=== PATIENT | female | born 1985 | race Caucasian/White ===

== ENCOUNTER 2016-12-05 15:44 | Day surgery (SDC) | payer OTHER ==
[~2016-12-05] VITALS: Ht 167.6 cm; Wt 81.8 kg
[~2016-12-05 15:44] MED LIST: ENDOCET 5-3251 EACH PO; FLOMAX0.4 MG PO; IBUPROFEN800 MG PO; MULTI-VITAMIN1 EAC3 PO; Motrin PO; PERCOCET 5/31 TABLET PO; PRENATAL TABLE1 EAC3 PO; TRI-ESTARYLLA1 EACH PO; ZOFRAN ODT4 MG PO
[2016-12-05 17:04] LABS: HEMATOCRIT 36.9 % (36.0-46.0); MCH 29.5 PG (29.0-34.0); MCHC 33.6 G/DL (30.0-36.0); MCV 87.9 FL (83-99); MEAN PLAT.VOLUME 11.2 uM^3 (9.5-12.4); PLATELET COUNT 275 K/uL (156-360); RBC DIS.WIDTH-CV 12.7 % (11.8-14.6); RBC DIS.WIDTH-SD 40.4 % (39-53); WHITE BLOOD COUNT 10.1 K/uL (4.1-10.2)
[2016-12-05 17:16] LABS: CHLORIDE 106 mEq/L (99-109); POTASSIUM 3.5 mEq/L (3.7-5.4); SODIUM 139 mEq/L (136-147)
[2016-12-05 17:19] LABS: GLUCOSE 112 mg/dL (70-99)
[2016-12-05 17:20] LABS: ANION GAP 12 MEQ/L (2-14)
[2016-12-05 17:21] LABS: TOTAL BILIRUBIN 0.9 mg/dL (0.0-1.0)
[2016-12-05 17:22] LABS: ALKALINE PHOSPHATASE 71 IU/L (3-129); GFR ESTIMATE (CALCULATED) > 59 mL/min/
[2016-12-05 17:23] LABS: UREA NITROGEN (BUN) 8 mg/dL (9-23)
[2016-12-05 17:26] LABS: LIPASE 7 U/L (1.0-51.0)
[2016-12-05 18:42] LABS: ADD MIUA? YES; BILIRUBIN NEGATIVE; BLOOD LARGE; COLOR YELLOW ((YELLOW)); GLUCOSE (STRIP) NEGATIVE; KETONES 80; LEUKOCYTES NEGATIVE; NITRITE NEGATIVE; PROTEIN (STRIP) 100; SPECIFIC GRAVITY 1.028 (1.000-1.030); UROBILINOGEN 0.2 MG/DL (0.2-1.0)
[2016-12-05 19:01] LABS: BACTERIA RARE /HPF; EPITHELIAL CELLS RARE /HPF; MUCUS 3+ /LPF; RED BLOOD CELLS 15-20 /HPF (0-5); UCUL ADDED? NO; UNCLASSIFIED CRYSTALS 1+ /HPF; WHITE BLOOD CELLS 0-5 /HPF (0-5)
[2016-12-05] MEDS ORDERED: ALEVE220 MG PO (20:57)
[2016-12-06 02:50] VITALS: BP 113/56
== END 2016-12-06 08:56 | disposition home or self-care (01) ==
LOC: EXP 15:44 → EME 15:44 → SDC 12-06 00:43 → EXP 12-06 00:43 → 2EAST 12-06 02:06
PROVIDERS: Nurse Practitioner Family
DX: O00.10 Tubal pregnancy without intrauterine pregnancy (principal); Z30.2 Encounter for sterilization; K66.1 Hemoperitoneum; E66.9 Obesity, unspecified
CPT/HCPCS: 74177; 76801; 80053; 81003; 83690; 84702; 85027; 86900; 86901; 88302; 88305; 99281; 99285; G0378; J0330; J1100; J1885; J2175; J2250; J2405; J2710; J3010; J7030; S0020

== ENCOUNTER 2017-12-06 11:25 | Emergency (ER) | payer OTHER ==
[~2017-12-06] VITALS: Ht 167.6 cm; Wt 78.5 kg
[~2017-12-06 11:25] MED LIST changes: +ALEVE220 MG PO
[2017-12-06 13:02] LABS: HEMATOCRIT 40.7 % (36.0-46.0); MCH 30.7 PG (29.0-34.0); MCHC 34.4 G/DL (30.0-36.0); MCV 89.3 FL (83-99); PLATELET COUNT 231 K/uL (156-360); RBC DIS.WIDTH-CV 12.1 % (11.8-14.6); RBC DIS.WIDTH-SD 39.8 % (39-53); RED BLOOD COUNT 4.56 M/uL (3.80-5.20); WHITE BLOOD COUNT 6.6 K/uL (4.1-10.2)
[2017-12-06 13:12] LABS: ALBUMIN 4.8 g/dL (3.2-4.8); CHLORIDE 106 mEq/L (99-109); POTASSIUM 3.4 mEq/L (3.7-5.4); SODIUM 143 mEq/L (136-147)
[2017-12-06 13:14] LABS: GLUCOSE 76 mg/dL (70-99); TOTAL PROTEIN 7.8 g/dL (6.4-8.3)
[2017-12-06 13:16] LABS: TOTAL BILIRUBIN 0.4 mg/dL (0.0-1.0)
[2017-12-06 13:18] LABS: ALKALINE PHOSPHATASE 89 IU/L (3-129); CREATININE 0.7 mg/dL (0.6-1.3); GFR ESTIMATE (CALCULATED) > 59 mL/min/
[2017-12-06 13:18] LABS: APPEARANCE CLEAR ((CLEAR)); BILIRUBIN NEGATIVE; BLOOD SMALL; COLOR YELLOW ((YELLOW)); GLUCOSE (STRIP) NEGATIVE; KETONES NEGATIVE; LEUKOCYTES NEGATIVE; NITRITE NEGATIVE; PROTEIN (STRIP) NEGATIVE; SPECIFIC GRAVITY 1.012 (1.000-1.030); UROBILINOGEN 0.2 MG/DL (0.2-1.0)
[2017-12-06 13:19] LABS: UREA NITROGEN (BUN) 7 mg/dL (9-23)
[2017-12-06 13:20] LABS: AST (GOT) 14 IU/L (2-34)
[2017-12-06 13:21] LABS: ALT (GPT) 12 IU/L (3-49)
[2017-12-06 13:22] LABS: BACTERIA RARE /HPF; EPITHELIAL CELLS RARE /HPF; HYALINE CASTS 0-5 /LPF; MUCUS 2+ /LPF; RED BLOOD CELLS 30-40 /HPF (0-5); UCUL ADDED? NO; WHITE BLOOD CELLS 0-5 /HPF (0-5)
[2017-12-06 13:29] LABS: QUANTITATIVE HCG < 4.0 MIU/ML
[2017-12-06] MEDS ORDERED: TYLENOL WITH C1 EACH PO (16:46)
[2017-12-06 18:08] VITALS: BP 124/80
== END 2017-12-06 18:09 | disposition home or self-care (01) ==
LOC: EME 11:25
DX: N20.0 Calculus of kidney (principal); F32.9 Major depressive disorder, single episode, unspecified; Z90.722 Acquired absence of ovaries, bilateral; Z91.018 Allergy to other foods; Z91.030 Bee allergy status
CPT/HCPCS: 74176; 80053; 81003; 84702; 85027; 99281; 99285

== ENCOUNTER 2017-12-19 21:01 | Emergency (ER) | payer OTHER ==
[~2017-12-19] VITALS: Ht 167.6 cm; Wt 78.1 kg
[~2017-12-19 21:01] MED LIST changes: +TYLENOL WITH C1 EACH PO
[2017-12-19 21:41] LABS: HEMATOCRIT 35.6 % (36.0-46.0); HEMOGLOBIN 12.4 G/DL (11.9-15.5); MCH 30.9 PG (29.0-34.0); MCHC 34.8 G/DL (30.0-36.0); MCV 88.8 FL (83-99); PLATELET COUNT 226 K/uL (156-360); RBC DIS.WIDTH-SD 39.1 % (39-53); RED BLOOD COUNT 4.01 M/uL (3.80-5.20); WHITE BLOOD COUNT 5.4 K/uL (4.1-10.2)
[2017-12-19 21:41] LABS: APPEARANCE CLEAR ((CLEAR)); BILIRUBIN NEGATIVE; BLOOD SMALL; COLOR YELLOW ((YELLOW)); GLUCOSE (STRIP) NEGATIVE; KETONES NEGATIVE; LEUKOCYTES TRACE; NITRITE NEGATIVE; PROTEIN (STRIP) 30; SPECIFIC GRAVITY 1.023 (1.000-1.030); UROBILINOGEN 0.2 MG/DL (0.2-1.0)
[2017-12-19 21:49] LABS: ALBUMIN 4.4 g/dL (3.2-4.8); CHLORIDE 106 mEq/L (99-109); POTASSIUM 3.2 mEq/L (3.7-5.4)
[2017-12-19 21:50] LABS: SODIUM 143 mEq/L (136-147)
[2017-12-19 21:51] LABS: BACTERIA RARE /HPF; EPITHELIAL CELLS 1+ /HPF; MUCUS TRACE /LPF; RED BLOOD CELLS 30-40 /HPF (0-5); UCUL ADDED? YES
[2017-12-19 21:52] LABS: GLUCOSE 80 mg/dL (70-99); TOTAL PROTEIN 7.3 g/dL (6.4-8.3)
[2017-12-19 21:54] LABS: TOTAL BILIRUBIN 0.4 mg/dL (0.0-1.0)
[2017-12-19 21:55] LABS: ALKALINE PHOSPHATASE 79 IU/L (3-129); CREATININE 0.7 mg/dL (0.6-1.3); GFR ESTIMATE (CALCULATED) > 59 mL/min/
[2017-12-19 21:57] LABS: AST (GOT) 16 IU/L (2-34); UREA NITROGEN (BUN) 11 mg/dL (9-23)
[2017-12-19 21:58] LABS: ALT (GPT) 13 IU/L (3-49)
[2017-12-19 22:06] LABS: QUANTITATIVE HCG < 4.0 MIU/ML
[2017-12-20] MEDS ORDERED: PERCOCET 5/31 TABLET PO (00:15)
[2017-12-20] MEDS ORDERED: ZOFRAN4 MG PO (00:15)
[2017-12-20 00:27] VITALS: BP 132/86
[2017-12-24] MEDS ORDERED: FLOMAX0.4 MG PO (15:50)
[2017-12-24] MEDS ORDERED: TORADOL10 MG PO (15:50)
[2017-12-24] MEDS ORDERED: K-DUR20 MEQ PO (15:51)
== END 2017-12-20 00:28 | disposition home or self-care (01) ==
LOC: EME 21:01
DX: N20.0 Calculus of kidney (principal); F32.9 Major depressive disorder, single episode, unspecified; Z87.442 Personal history of urinary calculi; Z91.030 Bee allergy status; Z91.018 Allergy to other foods
CPT/HCPCS: 74018; 76770; 80053; 81003; 84702; 85027; 87086; 99281; 99284; J1885

== ENCOUNTER → 2017-12-27 | Outpatient (CLI) | payer OTHER ==
[~2017-12-27] VITALS: Ht 167.6 cm; Wt 78.5 kg
[~2017-12-27] MED LIST changes: +K-DUR20 MEQ PO; +TORADOL10 MG PO; +ZOFRAN4 MG PO
== END | disposition home or self-care (01) ==
LOC: AMB 11:23
PROC: 0TF4XZZ Fragmentation in Left Kidney Pelvis, External Approach (ICD-10-PCS; principal; 2017-12-27)
DX: N20.0 Calculus of kidney (principal)
CPT/HCPCS: 74021; 84132; J0330; J2405

== ENCOUNTER 2017-12-28 09:50 | Day surgery (SDC) | payer OTHER ==
[~2017-12-28] VITALS: Ht 167.6 cm; Wt 78.2 kg
[2017-12-28 10:37] LABS: BASOPHIL (%) 0.3 % (0-1); EOSINOPHIL (%) 0.7 % (0-5); EOSINOPHIL COUNT 0.1 K/uL (0-0.3); HEMATOCRIT 33.9 % (36.0-46.0); IMMATURE GRANULOCYTE (%) 0.1 % (0.0-0.7); LYMPHOCYTE (%) 18.6 % (15-42); LYMPHOCYTE COUNT 1.3 K/uL (1.0-2.8); MCH 31.1 PG (29.0-34.0); MCHC 35.4 G/DL (30.0-36.0); MCV 87.8 FL (83-99); MONOCYTE (%) 4.9 % (3-12); MONOCYTE COUNT 0.3 K/uL (0-0.8); NEUTROPHIL (%) 75.4 % (45-76); NEUTROPHIL COUNT 5.2 K/uL (1.8-6.4); PLATELET COUNT 184 K/uL (156-360); RBC DIS.WIDTH-CV 11.9 % (11.8-14.6); RBC DIS.WIDTH-SD 38.1 % (39-53); RED BLOOD COUNT 3.86 M/uL (3.80-5.20); WHITE BLOOD COUNT 6.9 K/uL (4.1-10.2)
[2017-12-28 10:46] LABS: CHLORIDE 109 mEq/L (99-109); POTASSIUM 3.6 mEq/L (3.7-5.4); SODIUM 140 mEq/L (136-147)
[2017-12-28 10:47] LABS: GLUCOSE 102 mg/dL (70-99)
[2017-12-28 10:51] LABS: CREATININE 0.7 mg/dL (0.6-1.3); GFR ESTIMATE (CALCULATED) > 59 mL/min/
[2017-12-28 10:52] LABS: UREA NITROGEN (BUN) 8 mg/dL (9-23)
[2017-12-28 11:00] LABS: QUANTITATIVE HCG < 4.0 MIU/ML
[2017-12-28 14:37] LABS: APPEARANCE SL.HAZY ((CLEAR)); BILIRUBIN NEGATIVE; BLOOD MODERATE; COLOR YELLOW ((YELLOW)); GLUCOSE (STRIP) NEGATIVE; KETONES 20; LEUKOCYTES TRACE; NITRITE NEGATIVE; PROTEIN (STRIP) 100; UROBILINOGEN 0.2 MG/DL (0.2-1.0)
[2017-12-28 15:20] LABS: WHITE BLOOD CELLS RARE /HPF (0-5)
[2017-12-28 15:21] LABS: BACTERIA 1+ /HPF; EPITHELIAL CELLS RARE /HPF; MUCUS NONE SEEN /LPF; UCUL ADDED? NO
[2017-12-28 16:15] VITALS: BP 152/81
[2017-12-28 17:13] VITALS: BP 143/84
== END 2017-12-28 17:20 | disposition home or self-care (01) ==
LOC: EME 09:50 → SDC 14:48
PROVIDERS: Emergency Medicine
DX: N13.2 Hydronephrosis with renal and ureteral calculous obstruction (principal); R11.2 Nausea with vomiting, unspecified; E87.6 Hypokalemia
CPT/HCPCS: 74018; 74420; 76770; 80048; 81003; 84702; 85025; 99281; 99285; C1758; C1769; C2625; J0330; J0690; J1100; J1885; J2250; J2405; J3010; J7050; J7120